=== PATIENT | male | born 1960 | race Caucasian/White ===

== ENCOUNTER 2017-12-25 07:21 | Inpatient (IN) | payer MEDICARE, MEDICAID ==
[~2017-12-25 07:21] MED LIST: Bupivacaine 0.5%/EPINEPHrine 1:200,000 50 ML MDV ONE; Dexamethasone 4 MG/ML SDV ONE; Glycopyrrolate 0.2 MG/ML 5 ML MDV ONE; Neostigmine Methylsulfate 1 MG/ML 5 ML Syringe ONE; Ondansetron 4 MG/2 ML SDV ONE; Propofol 200 MG/20 ML SDV ONE; Rocuronium 50 MG/5 ML Vial ONE; Succinylcholine 200 MG/10 ML MDV ONE; fentaNYL 250 MCG/5 ML SDV ONE
[2017-12-25] MEDS ORDERED: Acetaminophen 500 MG Tab PO ONE (08:00)
[2017-12-25] MEDS ORDERED: Gabapentin 300 MG Cap PO ONE (08:00)
[2017-12-25] MEDS ORDERED: Celecoxib 200 MG Cap PO ONE (08:00)
[2017-12-25] MEDS ORDERED: Dextrose 5%-Lactated Ringers 1,000 ML IV SCH (08:00)
[2017-12-25] MEDS ORDERED: Albuterol/Ipratropium 3.0-0.5 MG/3 ML Neb Soln NEB ONE (09:00)
[2017-12-25] MEDS ORDERED: ceFAZolin 2 GM in Sodium Chloride 0.9% 50 ML IV ONE (09:00)
[2017-12-25] MEDS ORDERED: Ketamine 500 MG/5 ML MDV IV SCH (09:15)
[2017-12-25] MEDS ORDERED: Ropivacaine 55 ML, Dexamethasone 8 MG, EPINEPHrine 0.4 MG, Sodium Chloride 0.9% 22.6 ML NERVRT SCH ×4 (09:15)
[2017-12-25] MEDS ORDERED: Linezolid 200 MG/100 ML Bag IRR ONE (09:20)
[2017-12-25] MEDS ORDERED: fentaNYL 250 MCG/5 ML SDV ONE (10:03)
[2017-12-25] MEDS ORDERED: fentaNYL 100 MCG/2 ML SDV IVPUSH ONE (11:05)
[2017-12-25] MEDS ORDERED: hydrOXYzine HCl 100 MG/2 ML SDV IM ONE (11:05)
[2017-12-25] MEDS: Dextrose 5%-Lactated Ringers 1,000 ML IV SCH ×2 (12:32→21:08)
[2017-12-25] MEDS ORDERED: Ondansetron 4 MG/2 ML SDV IV PRN (12:46)
[2017-12-25] MEDS ORDERED: Albuterol/Ipratropium 3.0-0.5 MG/3 ML Neb Soln INH PRN (12:47)
[2017-12-25] MEDS: Acetaminophen/oxyCODONE 325-5 MG Tab PO PRN ×2 (12:55→19:44)
[2017-12-25] MEDS: Gabapentin 300 MG Cap PO SCH ×2 (14:26→20:04)
[2017-12-25] MEDS: Albuterol/Ipratropium 3.0-0.5 MG/3 ML Neb Soln INH SCH ×2 (14:30→20:04)
[2017-12-25] MEDS: ceFAZolin 2 GM in Sodium Chloride 0.9% 50 ML IV SCH (16:29)
[2017-12-25] MEDS: Mometasone Furoate HFA 200 mcg/Puff 13 GM Inhaler INH SCH (20:03)
[2017-12-25] MEDS ORDERED: Tamsulosin 0.4 MG Cap.ER PO SCH (21:00)
[2017-12-25] MEDS ORDERED: Montelukast 10 MG Tab PO SCH (21:00)
[2017-12-25] MEDS ORDERED: traZODone 50 MG Tab PO SCH (21:00)
[2017-12-26] MEDS: Acetaminophen/oxyCODONE 325-5 MG Tab PO PRN ×4 (00:32→13:58)
[2017-12-26] MEDS: ceFAZolin 2 GM in Sodium Chloride 0.9% 50 ML IV SCH ×2 (00:32→07:49)
[2017-12-26] MEDS: Dextrose 5%-Lactated Ringers 1,000 ML IV SCH (05:36)
[2017-12-26] MEDS: Albuterol/Ipratropium 3.0-0.5 MG/3 ML Neb Soln INH SCH ×2 (07:22→12:00)
[2017-12-26] MEDS: Mometasone Furoate HFA 200 mcg/Puff 13 GM Inhaler INH SCH (07:26)
[2017-12-26] MEDS ORDERED: Pantoprazole 40 MG Tab.CR PO SCH (07:30)
[2017-12-26] MEDS ORDERED: Levothyroxine 100 MCG, Levothyroxine 25 MCG PO SCH ×2 (07:30)
[2017-12-26] MEDS: Gabapentin 300 MG Cap PO SCH ×3 (07:45→13:47)
[2017-12-26] MEDS ORDERED: Celecoxib 100 MG Cap PO SCH (09:00)
--- NOTE | 2017-12-26 10:00 | DISCH ---
ADMISSION DIAGNOSES: Trocar incisional hernia, incarcerated umbilical hernia, recurrent left inguinal hernia and SP Robert-en-Y gastric bypass surgery, unspecified surgical malabsorption, B12 deficiency, hypothyroidism, history of diabetes, essential hypertension, gastroesophageal reflux disease, back pain, vitamin D deficiency, B12 deficiency, unspecified surgical malabsorption and asthma. DISCHARGE DIAGNOSES: Diagnostic laparoscopy with repair of incisional incarcerated umbilical hernia with mesh, placement of Vicryl mesh, left inguinal exploration with repair of recurrent left inguinal hernia and division of left inguinal nerve for incisional hernia trocar site, incarcerated umbilical hernia, recurrent left inguinal hernia non-incarcerated and left inguinal nerve and scar entrapment and extensive intraabdominal adhesions. Date of surgery 12/25/2017, Pascual Crowley MD. HISTORY: Ankit presented with the above problems. After preoperative evaluation and discussion of possible risks and possible complications, he wished to proceed with surgical procedure. HOSPITAL COURSE: Ankit had his surgery on 12/25/2017. He had no operative complications. On postoperative day 1, his pain was managed. His activity was good. His oral intake was adequate. Vital signs stable and he was able to be discharged to home. PHYSICAL EXAMINATION: VITAL SIGNS: Ankit De La Torre is a 57-year-old male. VITAL SIGNS: Height is 5 feet 9 inches. Weight is 242 pounds. BMI is 35.7. TPR is 97.7, 85, 15, blood pressure 125/75. HEENT: Negative. NECK: Supple. HEART: Regular rate and rhythm. LUNGS: Clear. ABDOMEN: Dressings dry and intact. Abdominal binder is on. EXTREMITIES: Without peripheral edema. DISPOSITION: Discharged to home. CONDITION: Stable and improving. FOLLOWUP: Followup appointment with Pascual Crowley MD on 01/02/2018 at 10 a.m. DISCHARGE MEDICATIONS: New prescriptions Percocet 5/325 mg one to two q.4 hours p.r.n. pain #40. He is to resume his home medication of: 1. Beclomethasone dipropionate 80 mcg two puffs inhalation twice daily. 2. Celebrex 100 mg oral twice daily. 3. Vitamin D3, 3000 international units. 4. Vitamin B12, 2500 mcg sublingual twice daily. 5. Flexeril 10 mg oral at bedtime. 6. Neurontin 600 mg oral 3 times a day. 7. Vitron-C one tablet oral daily. 8. Xopenex 3 mL inhalation every 8 hours p.r.n. wheezing. 9. Synthroid 125 mcg oral daily. 10.Singulair 10 mg oral at bedtime. 11.Multivitamin with minerals 1 capsule twice daily. 12.Omeprazole 20 mg twice daily. 13.Sildenafil citrate 25 mg order as directed. 14.Januvia 50 mg oral daily. 15.Flomax 0.4 mg oral at bedtime. 16.Vitamin B complex 1 capsule oral daily. 17.Trazodone 50 mg oral at bedtime. DIET: His usual diet as tolerated. Drink 8 to 10 glasses of water a day. ACTIVITY: No lifting greater than 10 pounds for 6 weeks. Other activity, walk 6 times daily inside your apartment. Shower bathing, may shower. DISCHARGE INSTRUCTIONS: Notify provider if any fever, increased pain, swelling, redness, drainage, nausea, or vomiting. Keep site clean and dry. Wear abdominal binder for 2 weeks and then as tolerated. SPECIAL INSTRUCTION: Use incentive spirometer 10 times every hour while awake for 1 week.
[2017-12-26 11:37] VITALS: BP 124/96
--- NOTE | 2018-01-08 08:42 | OR ---
DATE OF PROCEDURE: 12/25/2017 PREOPERATIVE DIAGNOSES: 1. Probable incisional and/or umbilical hernias. 2. Recurrent left inguinal hernia. POSTOPERATIVE DIAGNOSES: 1. Laparoscopy identifying: a. Incarcerated incisional hernia (trocar site). b. Incarcerated umbilical hernia. c. Extensive intra-abdominal adhesions. 2. Recurrent left inguinal hernia. PROCEDURE PERFORMED: 1. Diagnostic laparoscopy with: a. Repair of incarcerated incisional and incarcerated umbilical hernias with mesh ([id number], [id number]). b. Placement of Vicryl mesh, placed in abdominal and pelvic wall as well as newly placed mesh from underlying viscera to limit recurrent adhesion formation ([id number]). 2. Left inguinal exploration with: a. Repair of recurrent left inguinal hernia with mesh ([id number]). b. Division of left ilioinguinal nerve ([id number]). ANESTHESIA: General. INDICATION FOR PROCEDURE: A 57-year-old male presenting with what appeared to be some hernias in the left mid abdomen and periumbilical area. Plan is to proceed with diagnostic laparoscopy to more clearly identify the pathology and then repair the hernias as indicated. Additionally, the patient has a clear-cut non-incarcerated left inguinal hernia. The plan is to proceed with a diagnostic laparoscopy with lysis of adhesions and repair of hernias as indicated by operative findings. We then followed this with a left inguinal exploration, repair of recurrent left inguinal hernia with mesh. The fact that we often will divide the ilioinguinal nerve in this setting to prevent the mesh becoming a point where there is a scar entrapment of the nerve with chronic pain developing, was gone over as well as other complications potentially related to this procedure and he wishes that to proceed. DETAILS OF PROCEDURE: The patient was taken to the operating room. After general endotracheal anesthesia was induced, the abdomen was prepped and draped and a Ortiz catheter was inserted. Beginning in the right mid abdomen, a transverse incision was made and the peritoneal cavity entered under direct vision with an Optiview trocar, inflated to 15 mmHg pressure of CO2. Laparoscope was then reinserted. No underlying trocar insertion site or injuries were seen. Following this, 5 mm trocars were placed in the right upper quadrant as well as right lower quadrant. The patient had numerous adhesions between the abdominal wall and pelvic wall along with omentum and some small bowel. These were taken down with sharp dissection. After completion of that phase, there appeared to be no problems with the small bowel serosa. The patient was noted to have 2 incarcerated hernias, an incisional hernia which was related to a trocar site likely used for the patient's camera port at the time of his bariatric procedure containing some omentum. This was reduced and returned back into the peritoneal cavity. The incarcerated component in the umbilical hernia was somewhat a preperitoneal fat, which was reduced after incision of the peritoneum overlying the hernia. This hernia was felt to be best treated by single mesh as circular Ventralight hernia mesh with a 20.3 cm diameter, was selected and it was soaked in antibiotic containing saline solution placed in the intraperitoneal cavity. The stab wound was then made on the abdominal wall, more or less half-way between the 2 hernias and the patient's catheter pulled up and the inflation balloon was then inflated, bringing the mesh up against the abdominal wall. This extended somewhat onto the pelvic wall as well. The mesh was then circumferentially fixed with absorbable tacking screws with any first circumferential layer of screws on the far margin and then the second went somewhat anterior to that. This appeared to fix the mesh well on all locations and well away from the 2 hernias sites. The patient felt to be at high risk for redevelopment of the significant adhesions between the small and large bowel, omentum and the pelvic and abdominal wall and the area covered by mesh. Given this, a 12-inch segment of Vicryl mesh was then placed. This was placed behind the bladder and along the pelvic sidewalls and then up against the abdominal wall, also completely covering the area underlying the newly placed mesh. At that point, no further problems were noted. Trocars were removed. The fascia at the 12 mm site was closed with 0 Vicryl stitch. Each of the incision was closed with 4-0 Vicryl skin stitch. Prior to removal of the trocars, bilateral transversus abdominis plane blocks were placed with direct vision of the needle in the correct location on each side and the standard solution being injected. Attention was then taken to the left inguinal areas. The standard left inguinal incision using the previous incision was made and carried down through the skin and subcutaneous tissue. The patient had an intact external oblique aponeurosis which was then divided from the internal ring laterally. The subaponeurotic flaps were then raised superiorly and inferiorly. The patient was noted to have a medial direct recurrence of fairly broad-based area of thinned out fascia. The transversalis fascia down the level was incised, following dissection underneath the conjoined tendon medially, superiorly, and laterally, and down to the pubic bone inferiorly. A large mesh plug was then selected and placed into the defect. It was initially fixed to the Florentin ligament with titanium tacking screws to the underside of the conjoined tendon medially, superiorly and laterally with horizontal mattress sutures of 0 Vicryl stitch. The closure over this was then accomplished with running 0 Vicryl stitch between conjoined tendon and the shelving portion of the inguinal ligament just enough to tighten up the area of the internal ring. The patient was noted to have his ilioinguinal nerve directly passing over the flat portion of the mesh plugs. The flat portion of the mesh plug system would be placed. Given this, this was divided and the portion excised at the far edge of the level of the incision. Flat portion of the mesh plug system was then placed and sutured lateral to the cord structures with 3-0 Vicryl stitch and then fixed to the pubic tubercle with titanium tacking screw. The external oblique aponeurosis was then approximated over this layer as well as the cord structures with 3-0 Vicryl stitch and 4-0 Vicryl sutures were used for the Qian's fascia and 4-0 Vicryl subcuticular stitch was used for the skin. Dressing was applied. The patient was taken to the recovery room in satisfactory condition. On the site, 0.5% Marcaine had been injected in the muscular and skin layers to augment postoperative pain control as well. The patient was taken to the recovery room in satisfactory condition. Pascual Crowley MD /[id number]
== END 2017-12-26 14:07 | disposition home or self-care (01) | DRG 336 ==
LOC: JP.SDS 07:21 → JP.MS 10:40 → EDSTATUS 11:00
PROVIDERS: ADMIT Surgery; ATTEND Surgery
PROC: 0WUF4JZ Supplement Abdominal Wall with Synthetic Substitute, Percutaneous Endoscopic Approach (ICD-10-PCS; principal; 2017-12-25)
PROC: 0DNU4ZZ Release Omentum, Percutaneous Endoscopic Approach (ICD-10-PCS; 2017-12-25)
PROC: 0YU64JZ Supplement Left Inguinal Region with Synthetic Substitute, Percutaneous Endoscopic Approach (ICD-10-PCS; 2017-12-25)
PROC: 0WUF4JZ Supplement Abdominal Wall with Synthetic Substitute, Percutaneous Endoscopic Approach (ICD-10-PCS; 2017-12-25)
PROC: 018 Peripheral Nervous System, Division (ICD-10-PCS; 2017-12-25)
PROC: 0DN84ZZ Release Small Intestine, Percutaneous Endoscopic Approach (ICD-10-PCS; 2017-12-25)
PROC: 0DNW4ZZ Release Peritoneum, Percutaneous Endoscopic Approach (ICD-10-PCS; 2017-12-25)
PROC: 3E0M45Z Introduction of Adhesion Barrier into Peritoneal Cavity, Percutaneous Endoscopic Approach (ICD-10-PCS; 2017-12-25)
PROC: 3E0T3BZ Introduction of Anesthetic Agent into Peripheral Nerves and Plexi, Percutaneous Approach (ICD-10-PCS; 2017-12-25)
DX: K43.0 Incisional hernia with obstruction, without gangrene (principal); K91.2 Postsurgical malabsorption, not elsewhere classified; K42.0 Umbilical hernia with obstruction, without gangrene; K40.91 Unilateral inguinal hernia, without obstruction or gangrene, recurrent; K66.0 Peritoneal adhesions (postprocedural) (postinfection); I10 Essential (primary) hypertension; E11.42 Type 2 diabetes mellitus with diabetic polyneuropathy; Z79.84 Long term (current) use of oral hypoglycemic drugs; E03.9 Hypothyroidism, unspecified; J45.909 Unspecified asthma, uncomplicated; M25.50 Pain in unspecified joint; M54.9 Dorsalgia, unspecified; Z98.84 Bariatric surgery status; Z98.0 Intestinal bypass and anastomosis status; E53.8 Deficiency of other specified B group vitamins; E55.9 Vitamin D deficiency, unspecified; E60 Dietary zinc deficiency; E50.9 Vitamin A deficiency, unspecified; K21.9 Gastro-esophageal reflux disease without esophagitis
CPT/HCPCS: 36415; 82962; 84100; 88302; 94640; 94640-76; 94762; A9270-GY; C1781; C9399; J0171; J0330; J0690; J1100; J2020; J2405; J2704; J2710; J2795; J3010; J3410; J3490; J7030; J7042; J7050; J7620-GY

== ENCOUNTER 2018-12-23 10:50 | Emergency (ER) | payer MEDICARE, MEDICAID ==
[2018-12-23] MEDS ORDERED: Sodium Chloride 0.9% 10 ML Syringe FLUSH PRN (11:59)
[2018-12-23] MEDS ORDERED: Albuterol 0.083% 2.5 MG/3 ML Neb Soln NEB ONE (12:03)
[2018-12-23] MEDS ORDERED: Morphine 4 MG/ML Syringe IVPUSH ONE (12:05)
[2018-12-23] MEDS ORDERED: Sodium Chloride 0.9% 10 ML Syringe FLUSH ONE (13:01)
[2018-12-23] MEDS ORDERED: Sodium Chloride 0.9% 1,000 ML IV ONE (13:01)
[2018-12-23] MEDS ORDERED: Sodium Chloride 0.9% 100 ML IV SCH (13:15)
[2018-12-23] MEDS ORDERED: Iopamidol 755 Mg/ML 100 ML Bottle IV SCH (13:15)
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
[2018-12-23 15:00] VITALS: BP 122/84; PULSE 95
--- NOTE | 2018-12-23 15:11 | CT ---
Ang Chest CLINICAL HISTORY: SOB, tachypnea TECHNIQUE: Thin section axial contiguous tomographic sections were taken through the chest before and after bolus IV iodinated contrast administration. Coronal and sagittal images were reconstructed. Auto dosage reduction and iterative reconstruction techniques employed. FINDINGS: No infiltrates are seen. There are no pleural effusions. Mediastinum shows no mass or suspicious lymphadenopathy Pulmonary arteries are clear of filling defects. Scans in the upper abdomen show small hiatal hernia. Patient has had previous gastric surgery. IMPRESSION: No evidence of pulmonary was Lung villalobos are clear. No suspicious adenopathy
[2018-12-23] MEDS ORDERED: Alum Hydrox/Mag Hydrox/Simeth 15 ML, Lidocaine 2% 15 ML PO ONE ×2 (15:20)
== END 2018-12-23 16:51 | disposition home or self-care (01) ==
LOC: JP.ED 10:50
DX: R09.1 Pleurisy (principal); K44.9 Diaphragmatic hernia without obstruction or gangrene; E11.42 Type 2 diabetes mellitus with diabetic polyneuropathy; J45.909 Unspecified asthma, uncomplicated; E03.9 Hypothyroidism, unspecified; D64.9 Anemia, unspecified; M19.90 Unspecified osteoarthritis, unspecified site; Z88.0 Allergy status to penicillin; Z88.8 Allergy status to other drugs, medicaments and biological substances; Z79.899 Other long term (current) drug therapy
CPT/HCPCS: 36415; 71275; 80053; 83690; 83880; 84443; 84484; 85025; 93005; 93010; 94640; 96361; 96374; 99284; 99285; A9270; J2270; J7030; Q9967